=== PATIENT | male | born 1945 | race Caucasian/White ===

== ENCOUNTER 2018-05-28 15:27 | Emergency (ER) | payer OTHER, BC ==
[2018-05-28] MEDS ORDERED: fentaNYL 100 MCG/2 ML INJ IVP ONE (15:53)
[2018-05-28] MEDS ORDERED: NS 1,000 ML IV ONE (15:53)
[2018-05-28] MEDS ORDERED: ONDANSETRON 4 MG/2 ML VIAL IVP ONE (15:53)
[2018-05-28 16:04] LABS: PLATELET COUNT 234 10^3/uL (150-400)
--- NOTE | 2018-05-28 16:45 | EDPHY ---
H & P Stated Complaint: abd pain Time Seen by Provider: 05/28/18 15:38 HPI/ROS: CHIEF COMPLAINT: Abdominal pain HISTORY OF PRESENT ILLNESS: 72-year-old male visiting from out of town presents emergency department reporting that he developed mid abdominal discomfort earlier today. Pain doubt seems to be slightly worse in the right lower quadrant. Patient feels somewhat gassy and has been belching. Denies any urinary complaints. No history of fevers. No prior history of pain similar to this. No urinary complaints. REVIEW OF SYSTEMS: A comprehensive 10 system review of systems was reviewed and is otherwise negative aside from elements mentioned in the history of present illness and medical decision making. PAST MEDICAL HISTORY: Chronic back pain. Sleep apnea. SOCIAL HISTORY: Visiting from out of town. When hiking yesterday. VITAL SIGNS Reviewed by me. Afebrile. Blood pressure 192/69 GENERAL: Well-developed, well-nourished, reports moderate abdominal discomfort. HEENT: Atraumatic. Eyes: No icterus, no injection. Mouth: Slightly dry mucous membranes. No erythema or lesions. Neck: supple with no adenopathy. LUNGS: Clear to auscultation bilaterally, no wheezes, rhonchi or rales. CARDIAC: Regular rate and rhythm, no rubs, murmurs or gallops. ABDOMEN: Soft, mild tenderness periumbilical and in the right mid quadrant. No guarding or rebound. No distension. BACK: Right CVA tenderness. EXTREMITIES: No trauma. No edema. Range of motion is normal throughout. NEURO: Alert and oriented, grossly nonfocal. SKIN: Warm and dry, no rash. PSYCHIATRIC: Normal mentation, no agitation. - Personal History Current Tetanus/Diphtheria Vaccine: Yes - Medical/Surgical History Hx Asthma: No Hx Chronic Respiratory Disease: No Hx Diabetes: No Hx Cardiac Disease: No Hx Renal Disease: No Hx Cirrhosis: No Hx Alcoholism: No Other PMH: Lower back pain, CPAP, - Social History Smoking Status: Never smoked Constitutional: Initial Vital Signs Temperature (C) 36.9 C 05/28/18 15:29 Heart Rate 63 05/28/18 15:29 Respiratory Rate 18 05/28/18 15:29 Blood Pressure 192/69 H 05/28/18 15:29 O2 Sat (%) 94 05/28/18 15:29 O2 Delivery Mode Room Air Allergies/Adverse Reactions: No Known Allergies Allergy (Unverified 05/28/18 15:34) Home Medications: Medication Instructions Recorded Ondansetron Odt [Zofran Odt 4 mg 4 mg PO Q6 PRN #8 tab 05/28/18 (RX)] Tamsulosin HCl [Flomax] 0.4 mg PO DAILY #7 cap 05/28/18 oxyCODONE/APAP 5/325 [Percocet 1 tab PO QID PRN #14 tab 05/28/18 5/325 (*)] Medical Decision Making - Diagnostics Imaging Results: Impression: 1. Moderate right hydroureteronephrosis, secondary to a 2-mm obstructing calculus in the distal right ureterovesical junction. Additional 2-mm calculus in a calyx of the upper pole right kidney. 2. No left nephrolithiasis, ureterolithiasis or hydroureter. Multiple cystic changes in the left renal pelvis, which may represent parapelvic cysts versus less likely UPJ obstruction or hydronephrosis. Consider additional postcontrast CT imaging if clinically indicated. 3. Sigmoid diverticulosis without diverticulitis. 4. Atherosclerotic aorta without aneurysm. 5. Moderate hiatal hernia. 6. Several possible subcentimeter hepatic cysts, but indeterminate without intravenous contrast. Dictated By: Kendrick Hansen ED Course/Re-evaluation: IV placed in the patient received fentanyl for his discomfort. Urinalysis positive for blood. 50-182 RBCs per high-power field. No significant leukocytosis or signs of infection CT scan without IV contrast obtained. This was positive for a 2 mm right UVJ stone with moderate obstruction. Patient re-examined. He has received 1 L normal saline. Reports pain has recurred. Patient received Toradol, Flomax, and oral oxycodone which improved his symptoms. Discharged with Flomax, oral oxycodone, instructions regarding ibuprofen, strain the urine, stay well-hydrated, follow up with his primary care physician when he returns to [place]. Differential Diagnosis: Differential diagnosis of the patient's abdominal and flank pain was considered including but not limited to musculoskeletal causes, kidney stone, pyelonephritis, shingles, and intra-abdominal causes such as diverticulitis and appendicitis. - Data Points Laboratory Results: Laboratory Results 05/28/18 16:00 05/28/18 16:00 Medications Given: Discontinued Medications Fentanyl (Sublimaze) 75 mcg IVP EDNOW ONE Stop: 05/28/18 15:54 Last Admin: 05/28/18 16:02 Dose: 75 mcg Sodium Chloride (Ns) 1,000 mls @ 0 mls/hr IV EDNOW ONE; Wide Open PRN Reason: Protocol Stop: 05/28/18 15:54 Last Admin: 05/28/18 16:01 Dose: 1,000 mls Ketorolac Tromethamine (Toradol) 30 mg IVP EDNOW ONE Stop: 05/28/18 16:48 Last Admin: 05/28/18 16:56 Dose: 30 mg Ondansetron HCl (Zofran) 4 mg IVP EDNOW ONE Stop: 05/28/18 15:54 Last Admin: 05/28/18 16:02 Dose: 4 mg Oxycodone/Acetaminophen (Percocet 5/325) 2 tab PO EDNOW ONE Stop: 05/28/18 17:31 Last Admin: 05/28/18 17:36 Dose: 2 tab Tamsulosin HCl (Flomax) 0.4 mg PO EDNOW ONE Stop: 05/28/18 16:48 Last Admin: 05/28/18 16:56 Dose: 0.4 mg Departure - Departure Disposition: Home, Routine, Self-Care Clinical Impression: Renal colic on right side Condition: Fair Instructions: Kidney Stones (ED), Flank Pain (ED) Additional Instructions: Take oxycodone as needed for severe pain. Use Zofran as needed for nausea. Take ibuprofen 600 mg every 6-8 hours as needed for moderate pain. This will also help with inflammation. Take Flomax as directed. Followup with urology when you return to [place]. Please stay well-hydrated. Strain urine. Return to the emergency department if you have worsening pain, fevers, persistent vomiting, or other concerns. Referrals: MARILIN AYON [Other] - As per Instructions Prescriptions: Ondansetron Odt [Zofran Odt 4 mg (RX)] 4 mg PO Q6 PRN #8 tab PRN Reason: Nausea oxyCODONE/APAP 5/325 [Percocet 5/325 (*)] 1 tab PO QID PRN #14 tab PRN Reason: Pain Tamsulosin HCl [Flomax] 0.4 mg PO DAILY #7 cap
[2018-05-28] MEDS ORDERED: TAMSULOSIN HCL 0.4 MG CAP PO ONE (16:47)
[2018-05-28] MEDS ORDERED: KETOROLAC 30 MG/1 ML SDV IVP ONE (16:47)
[2018-05-28] MEDS ORDERED: OXYCODONE/APAP 5/325 TAB ONE (17:25)
[2018-05-28] MEDS ORDERED: OXYCODONE/APAP 5/325 TAB PO ONE (17:30)
[2018-05-28 17:45] VITALS: BP 164/89
== END 2018-05-28 17:46 | disposition home or self-care (01) ==
DX: N23 Unspecified renal colic (principal); N13.2 Hydronephrosis with renal and ureteral calculous obstruction; E86.9 Volume depletion, unspecified; K57.30 Diverticulosis of large intestine without perforation or abscess without bleeding; K44.9 Diaphragmatic hernia without obstruction or gangrene; I70.0 Atherosclerosis of aorta
CPT/HCPCS: 74176; 96361; 96374; 96375; 99285; J1885; J2405; J3010